=== PATIENT | female | born 2000 | race Hispanic/Latino ===

== ENCOUNTER 2021-07-27 14:13 | Outpatient (CLI) | payer OTHER, SELFPAY ==
[2021-07-27 14:40] LABS: Absolute Lymphocyte Count 2.74 X10^3/uL (0.83-4.51); Absolute Neutrophil Count 3.4 X10^3/uL (2.0-7.7); Basophil# 0.04 X10^3/uL; Basophil% 0.6 % (0-1); Eosinophil# 0.16 X10^3/uL; Eosinophils% 2.3 % (0-5); Hematocrit 39.5 % (37-47); Hemoglobin 13.4 g/dL (12.0-15.0); Lymphocyte # 2.74 X10^3/ul (0.83-4.51); Lymphocyte % 40.1 % (19-41); Mean Corp Hgb Conc 33.9 g/dL (32-36); Mean Corpuscular Hgb 30.4 pg (27.0-32.0); Mean Corpuscular Volume 89.6 fL (81-99); Mean Platelet Vol. 11.1 fl (6.2-12.0); Monocyte# 0.52 X10^3/uL; Monocyte% 7.6 % (0-10); NRBC Flagged by Analyzer 0 % (0-5); Neutrophil # 3.36 X10^3/uL (2.7-7.7); Neutrophil % 49.1 % (47-70); Platelet Count 230 K/mm3 (150-450); RBC Distribution Width SD 43.1 fl (35.1-43.9); Red Blood Count 4.41 M/mm3 (4.2-5.4); White Blood Count 6.8 K/mm3 (4.4-11.0)
[2021-07-27 15:14] LABS: Thyroid Stim Hormone (TSH) 0.62 uIU/mL (0.358-3.74)
[2021-07-27 15:33] LABS: HIV - WCH Non-Reactive (Nonreactive); Syphilis Antibodies Non-reactive; Vitamin D,25 Hydroxy 19.9 ng/mL
[2021-07-27 17:26] LABS: Chlamydia Trachomatis by PCR Negative (Negative); Neisserai gonorrhoeae by PCR Negative (Negative); Probe Check PASS; Sample Adequacy Control PASS; Specimen Processing Control PASS
[2021-07-29 12:44] LABS: HSV 2 IgG < 0.91 index (0.00-0.90)
== END 2021-07-27 23:59 | disposition home or self-care (01) ==
PROVIDERS: PCP Nurse Practitioner Primary Care; Referring Provider Nurse Practitioner Women's Health; Visit Provider Nurse Practitioner Women's Health
DX: Z11.3 Encounter for screening for infections with a predominantly sexual mode of transmission (principal)
CPT/HCPCS: 36415; 82306; 84443; 85025; 86695; 86696; 86703; 86780; 87491; 87591

== ENCOUNTER 2022-01-10 10:56 | Emergency (ER) | payer OTHER, SELFPAY ==
[2022-01-10 10:57] VITALS: BP 119/71; PULSE 57; RESP 16; TEMP 36.8; O2SAT 99; BMI 26.6
--- NOTE | 2022-01-10 11:55 | ED.VIS.FALL ---
HPI HPI - Fall History of Present Illness Chief Complaint: Fall Informant: patient Occured/Mechanism Occurred: Days (3 days ago) Fall down steps #: 15 Pain/Injury Location: Left knee, right jaw Quality of Pain: Burning Worsened by: Movement Relieved by: Nothing Associated Symptoms Associated Symptoms: Negative for Parasthesias, Weakness, Loss of function, Inability to ambulate, Loss of consciousness or Amnesia Narrative Narrative: Patient presents after a fall that occurred 3 days ago. Patient states she fell down approximately 15 steps. Patient hit her head but denies any loss of consciousness. Patient admits to pain in her jaw that is worse on the right. Patient also admits to pain in her left knee. Patient describes her pain as burning. Patient denies any paresthesias or weakness. Patient admits to some abrasions but denies any bleeding. Patient admits to a mild occipital headache. Patient denies any other injuries. [facility] Medical History Contusion of left great toe without damage to nail Home Medications melatonin 3 mg tablet 3 mg PO HS PRN 04/25/21 [History Last Taken Unknown] NuvaRing 0.12 mg-0.015 mg/24 hr vaginal (etonogestrel-ethinyl estradiol) 1 vag ring vaginal Q4W #3 ea 07/27/21 [Rx Last Taken Unknown] Allergy/AdvReac Type Severity Reaction Status Date / Time acetaminophen [From NyQuil] Allergy Intermediate Chest Verified 01/10/22 11:00 tightness dextromethorphan Allergy Intermediate Chest Verified 01/10/22 11:00 [From NyQuil] tightness doxylamine [From NyQuil] Allergy Intermediate Chest Verified 01/10/22 11:00 tightness pseudoephedrine [From NyQuil] Allergy Intermediate Chest Verified 01/10/22 11:00 tightness Family History (Updated 07/27/21 @ 13:51 by Sarai Villafana) Mother Breast cancer, Onset Age: 32 pre cervical cancer Father Hypertension Hyperlipidemia Sister Crohn's disease Surgical History History of cholecystectomy History of surgical removal of pilonidal cyst History of tonsillectomy and adenoidectomy Social History household members: significant other number of children: 0 current occupational status: employed current occupation: [employer] sexually active: Yes Smoking Status: Never smoker alcohol intake: current alcohol intake frequency: holidays/special occasions only substance use type: marijuana what type of physical activity do you participate in: none seatbelt use: always do you feel safe at home: Yes additional social history: boyfriend - [place] ROS ROS ED Constitutional Constitutional ED: Denies chills or fever(s) Eyes Eyes: Denies blurry vision or change in vision ENT ENT ED: Denies rhinorrhea or sore throat Cardiovascular Cardiovascular: Denies chest pain or palpitations Respiratory/Chest Respiratory/Chest: Denies cough or dyspnea Gastrointestinal Gastrointestinal: Denies nausea or vomiting Genitourinary Genitourinary ED: Denies dysuria or hematuria Musculoskeletal Musculoskeletal: Denies back pain or neck pain Integumentary Reports Abrasions; Denies abscess or rash Neurologic Neurologic: Reports headache(s); Denies weakness Allergic/Immunologic Allergic/Immunologic ED: Denies mouth swelling or urticaria EXAM Physical Exam Const Vital Signs: 01/10/22 10:57 01/10/22 11:11 Temperature 98.3 F Temperature Source Temporal Pulse Rate 57 L Respiratory Rate 16 Respiratory Effort Normal Non-Labored Respiratory Depth Normal Respiratory Pattern Normal Blood Pressure 119/71 Blood Pressure Mean 87 Pulse Ox 99 Oxygen Delivery Method Room Air Room Air Positive well nourished and well developed General Appearance ED: well developed and NAD HEENT Reports normocephalic HEENT Narrative: There is tenderness over the right temporomandibular joint area. There is no bony crepitance or step-off. There is no edema or ecchymosis. Patient is able to hold a tongue blade between her teeth against resistance. Neck full ROM and supple General: Negative for tenderness Resp normal respiratory effort and clear to auscultation bilaterally Cardio regular rate and regular rhythm GI non-tender Palpation: soft Extremity Extremity Narrative: There is tenderness, edema, and ecchymosis over the anterior aspect of the left knee. There is no bony crepitance or step-off. Range of motion was limited in flexion of the left knee secondary to pain. Sensation was intact to light touch bilaterally in the lower extremities. Strength is 5/5 bilaterally in the lower extremities. Neuro oriented x3, CN's II-XII intact bilaterally, moves all extremities, no focal motor deficits and no sensory deficits noted [place] Coma Scale: document GCS findings Spontaneous Obeys Commands Oriented 15 Sensorium / Orientation: alert Motor Exam: strength 5/5 throughout Psych mental status grossly normal and thought process normal Skin Skin Narrative: There are superficial abrasions over the medial aspect of the right elbow and anterior aspect of the left knee. There is no active bleeding. Trauma: abrasion MDM MDM MDM Narrative Medical decision making narrative: CT scan of the brain was obtained. There is no acute intracranial abnormality. This was interpreted by the radiologist and reviewed by myself. X-rays of the left knee were obtained. There are 4 views. On my interpretation, there is no acute fracture. There is no dislocation. There is some mild soft tissue swelling. Radiologist also interpreted the x-rays and agrees. Patient was advised of her findings. Patient was instructed to ice and elevate the left knee. Patient was instructed to take Tylenol or ibuprofen as needed for pain. Patient was given head injury instructions. Patient was instructed to drink plenty of fluids. Patient was instructed to limit her screen time with her phone and TV. Patient was instructed to follow-up with her primary care physician in 5 to 7 days. Patient understood and was agreeable with the plan. All questions were answered. Radiography Diagnostic Testing: Clinical Impression(s) from Imaging Studies Brain CT 01/10/22 12:02 IMPRESSION: Normal unenhanced CT scan of the brain. Electronically Signed: Ilia Epps MD at 12:33 EDT , Knee X-Ray 01/10/22 12:25 IMPRESSION: Normal x-ray examination of the knee. Electronically Signed: Ilia Epps MD at 12:37 EDT , Discharge Plan Triage Chief Complaint: Fall ED Provider: Jeff Birmingham Dx/Rx/DC Orders Clinical Impression: Concussion, Contusion of left knee, initial encounter, Sprain of right temporomandibular joint Instructions: ED Concussion, ED Contusion, Lower Extremity Prescriptions: No Action melatonin 3 mg tablet 3 mg PO HS PRN etonogestrel-ethinyl estradiol [NuvaRing] 0.12-0.015 mg/24 hr ring 1 vag ring VAGINAL Q4W Qty: 3 4RF Primary Care Provider: Wendy Zhu NP Referrals: Wendy Zhu NP, MAT[facility]IST-[facility] [Primary Care Provider] - 5-7 Days Disposition Disposition: Home, Self Care
--- NOTE | 2022-01-10 12:02 | CT_ITS ---
STUDY: CT BRAIN WITHOUT CONTRAST REASON FOR EXAM: Female, 21 years old. Head injury due to a fall. RADIATION DOSAGE (If Supplied By Facility): CTDIvol = ( 44.99 ) mGy, DLP = ( 697.68 ) mGycm TECHNIQUE: Transaxial CT imaging of the brain was performed without administration of intravenous contrast material. Individualized dose optimization techniques were used for this CT. COMPARISON: No relevant priors. FINDINGS: Normal soft tissue structures. Normal calvarium. Normal size ventricles and extra-axial spaces for the patient''s age. Normal white matter tracts of the cerebral hemispheres. Normal basal ganglia and thalami. Normal brainstem. Normal cerebellum. There is no intracranial hemorrhage. There are no findings of an acute ischemic infarction. Normal visualized paranasal sinuses. CT/Brain/Head without Contrast IMPRESSION: Normal unenhanced CT scan of the brain. Electronically Signed: Ilia Epps MD at 12:33 EDT ,
--- NOTE | 2022-01-10 12:25 | RAD_ITS ---
STUDY: X-RAY - LEFT KNEE REASON FOR EXAM: Female, 21 years old. Injury/Pain TECHNIQUE: 4 view(s) of the knee. COMPARISON: None. FINDINGS: Normal visualized distal femur. Normal visualized proximal tibia and fibula. Normal proximal tibiofibular articulation. Normal medial femorotibial compartment. Normal lateral femorotibial compartment. Normal patellofemoral articulation. The soft tissue structures are unremarkable. RAD/Knee 4 or More Views IMPRESSION: Normal x-ray examination of the knee. Electronically Signed: Ilia Epps MD at 12:37 EDT ,
== END 2022-01-10 13:09 | disposition home or self-care (01) ==
PROVIDERS: Emergency Provider Emergency Medicine; PCP Nurse Practitioner Primary Care; Visit Provider Emergency Medicine
DX: S06.0X0A Concussion without loss of consciousness, initial encounter (principal); S80.02XA Contusion of left knee, initial encounter; S03.41XA Sprain of jaw, right side, initial encounter; W10.9XXA Fall (on) (from) unspecified stairs and steps, initial encounter
CPT/HCPCS: 70450; 73564; 99282

== ENCOUNTER 2022-05-20 09:37 | Emergency (ER) | payer OTHER, SELFPAY ==
[2022-05-20] VITALS (9 sets, daily range): BP systolic 112–133; BP diastolic 70–94; PULSE 77–97; RESP 13–17; TEMP 36.9; O2SAT 94–99; BMI 25.3
--- NOTE | 2022-05-20 09:56 | CT_ITS ---
STUDY: CT BRAIN WITHOUT CONTRAST REASON FOR EXAM: Female, 21 years old. PT WITH ONGOING BACK PAIN HAD SEIZURE YESTERDAY FOR 1 MIN, SEEN AT [facility], THIS AM HAD ANOTHER SEIZURE LASTING APPROX 2 MIN. RADIATION DOSAGE (If Supplied By Facility): CTDIvol = ( 25.49 ) mGy, DLP = ( 1396.28 ) mGycm TECHNIQUE: Transaxial CT imaging of the brain was performed without administration of intravenous contrast material. Individualized dose optimization techniques were used for this CT. COMPARISON: Head CT dated January 10, 2022 FINDINGS: Normal soft tissue structures. Normal calvarium. No visualized dense artery sign or sulcal effacement or parenchymal edema. No midline shift or hydrocephalus is present. Normal size ventricles and extra-axial spaces for the patient''s age. Normal white matter tracts of the cerebral hemispheres. Normal basal ganglia and thalami. Normal brainstem. Normal cerebellum. There is no intracranial hemorrhage. There are no findings of an acute ischemic infarction. Normal visualized paranasal sinuses. IMPRESSION: Normal unenhanced CT scan of the brain. STUDY: CTA HEAD AND NECK WITH CONTRAST REASON FOR EXAM: Female, 21 years old. dissection PT WITH ONGOING BACK PAIN HAD SEIZURE YESTERDAY FOR 1 MIN, SEEN AT [facility], THIS AM HAD ANOTHER SEIZURE LASTING APPROX 2 MIN. RADIATION DOSAGE (If Supplied By Facility): CTDIvol = ( 25.49 ) mGy, DLP = ( 1396.28 ) mGycm TECHNIQUE: CT angiography was performed with a multi-detector CT scanner. Data acquisition was obtained from the skull base through the vertex following intravenous administration of IV 100mL [id number]-[id number]. MIP images were reconstructed from the axial data set. Post-processing of the angiographic images was performed, with multiplanar reformation and 3D reconstruction. Individualized dose optimization techniques were used for this CT. COMPARISON: Head CT dated January 10, 2022 FINDINGS: Normal bilateral petrous carotid arteries. Normal right cavernous carotid artery with a normal supraclinoid bifurcation. Normal left cavernous carotid artery with a normal supraclinoid bifurcation. Normal right A1 segments of the anterior cerebral artery. Normal left A1 segments of the anterior cerebral artery. Normal intact anterior communicating artery (ACOM). Normal bilateral A2 segments of the anterior cerebral arteries. Normal right M1 and M2 segments of the middle cerebral arteries, with a normal M1 bifurcation. Normal left M1 and M2 segments of the middle cerebral arteries, with a normal M1 bifurcation. Normal right posterior communicating artery (PCOM). Normal left posterior communicating artery (PCOM). Normal bilateral vertebral arteries. Normal basilar artery with a normal basilar bifurcation. The visualized bilateral superior cerebellar (SCA) arteries are normal. Normal bilateral P1, P2 and visualized P3 segments of the posterior cerebral arteries. There is no demonstrated aneurysm of the [place] of [place]. There is no demonstrated abnormality of the visualized brain. AORTIC ARCH: Normal visualized aortic arch. Normal origins of the brachiocephalic, left common carotid, and left subclavian arteries. RIGHT CAROTID ARTERIES: Normal right common carotid artery (CCA). Normal right common carotid bulb. Normal origin of the right internal carotid (ICA) artery without a hemodynamically significant stenosis. Normal visualized cervical portion of the right internal carotid artery. Normal origin of the right external carotid artery (ECA). LEFT CAROTID ARTERIES: Normal left common carotid artery (CCA). Normal left common carotid bulb. Normal origin of the left internal carotid (ICA) artery without a hemodynamically significant stenosis. Normal visualized cervical portion of the left internal carotid artery. Normal origin of the left external carotid artery (ECA). VERTEBRAL ARTERIES: Normal bilateral vertebral arteries. There is no intraluminal thrombus or dissection or intimal flap of the bilateral vertebral arteries along the entire course to the insertion on the subclavian arteries. No narrowing or fibromuscular changes are present. CT/CTA Head AND Neck W/ Contrast IMPRESSION: 1. Normal [place] without a demonstrated aneurysm or hemodynamically significant stenosis. 2. Normal bilateral cervical carotid and vertebral arteries. 3. Normal bilateral vertebral arteries. There is no intraluminal thrombus or dissection or intimal flap of the bilateral vertebral arteries along the entire course to the insertion on the subclavian arteries. No narrowing or fibromuscular changes are present. Electronically Signed: Andrade Calderon MD at 12:01 EST ,
--- NOTE | 2022-05-20 09:58 | EX.ED.DYSGE1 ---
HPI History of Present Illness Chief Complaint: Seizure Narrative Narrative: Patient presents after a seizure today. She does not have a history of seizures she had a seizure yesterday and was seen at an outside emergency department. Apparently CT of the head and blood work were unremarkable. She is denying withdrawing from anything, no new medications. No head injury. She was brought in by parents [facility] Medical History Anxiety Contusion of left great toe without damage to nail Depression Dysuria Epigastric pain GERD (gastroesophageal reflux disease) Pelvic pain SOB (shortness of breath) Home Medications NuvaRing 0.12 mg-0.015 mg/24 hr vaginal (etonogestrel-ethinyl estradiol) 1 vag ring vaginal Q4W #3 ea 07/27/21 [Rx Last Taken Unknown] omeprazole 20 mg capsule,delayed release 20 mg PO DAILY 05/16/22 [History Last Taken Unknown] tizanidine 2 mg tablet 2 mg PO Q8H 05/20/22 [History Last Taken Unknown] Allergy/AdvReac Type Severity Reaction Status Date / Time acetaminophen [From NyQuil] Allergy Intermediate Chest Verified 05/20/22 09:38 tightness dextromethorphan Allergy Intermediate Chest Verified 05/20/22 09:38 [From NyQuil] tightness doxylamine [From NyQuil] Allergy Intermediate Chest Verified 05/20/22 09:38 tightness phenylephrine Allergy Intermediate Other Verified 05/20/22 09:38 pseudoephedrine [From NyQuil] Allergy Intermediate Chest Verified 05/20/22 09:38 tightness Family History Mother Breast cancer, Onset Age: 32 pre cervical cancer Father Hypertension Hyperlipidemia Sister Crohn's disease Surgical History History of cholecystectomy History of surgical removal of pilonidal cyst History of tonsillectomy and adenoidectomy Social History household members: significant other number of children: 0 current occupational status: employed current occupation: [employer] sexually active: Yes Smoking Status: Current some day smoker tobacco type: e-cigarettes alcohol intake: current alcohol intake frequency: holidays/special occasions only substance use type: marijuana what type of physical activity do you participate in: none seatbelt use: always do you feel safe at home: Yes additional social history: boyfriend - [place] ROS ED ROS Narrative Past medical history: Reviewed Medications: Reviewed Social history: Noncontributory Review of systems: All systems negative except as indicated General: No fever Eyes: No visual changes ENT: No upper airway congestion, normal voice. No tongue abrasion Neck: No neck pain Cardiovascular: No chest pain Respiratory: No shortness of breath or cough Gastrointestinal: No abdominal pain, nausea vomiting or diarrhea Genitourinary: No dysuria Musculoskeletal: Denies myalgias no difficulty with ambulation Skin: No rash Neurological: As in HPI, right now she is amnestic to the event but she is lucid and coherent and no longer postictal. Psych: No recent behavioral changes Hematologic: No easy bleeding or easy bruising EXAM Physical Exam Narrative Exam Narrative: Physical exam General: Well nourished, Well developed, No Acute Distress Head: Normocephalic, Atraumatic Eyes: Conjunctiva not pale ENT: Moist mucous membranes. No tongue abrasion Neck: Supple, Nontender, No lymphadenopathy Cardiovascular: Regular rate, Regular rhythm Respiratory: No distress, CTA bilaterally Abdomen: Soft, Nontender, Nondistended Back: Nontender, Normal Inspection. Negative for: CVA tenderness Extremities: Nontender, No edema. Moves all extremities without any signs of trauma. Skin: Normal color, No rash Neurological: Alert, she is now lucid and coherent normal Strength, Normal Sensation Psychological: Normal affect Const Vital Signs: 05/20/22 09:39 05/20/22 12:14 05/20/22 13:03 Temperature 98.5 F Temperature Source Oral Pulse Rate 88 77 91 Respiratory Rate 17 17 16 Blood Pressure 133/90 H 120/86 H 124/94 H Blood Pressure Mean 104 97 104 Pulse Ox 99 98 97 Oxygen Delivery Method Room Air Room Air Room Air MDM MDM MDM Narrative Medical decision making narrative: A. Problems addressed Patient had an obvious seizure on the video screen I am seeing, the lactate was normal however the patient did come 2 to 3 hours after the seizure. I also addressed the patient's nausea, she does not feel well therefore I believe blood work was warranted. B. Amount and/or complexity of the data (2 out of 3) 1. I reviewed records from [place] emergency department, including CT and blood work as well as prior physician documentation. Blood work was ordered and interpreted by me I discussed the patient with both parents who are in the room, they saw her sees today, I saw a video from her boyfriend videoing her seizing yesterday. 2. Independent interpretation of test Telemetry: She is on the monitor in the room with heart rate in the 80s and low 90s without ectopy 3. I discussed the patient with [facility] external telemetry neurology, I discussed the plan. C. Risk of complications and/or morbidity Because the patient's recent chiropractic manipulation of the neck and neurological symptoms I did do a CT angiogram of the head and neck which were normal. Otherwise her blood work is normal she appears well however this is her second seizure and she is not on medication I believe she would likely need medications and possibly get an outpatient work-up by neurology. I called the outpatient neurology telemedicine for this. With suspending it with her note oncoming ED physician Lab Data Labs: Laboratory Results - last 24 hr 05/20/22 05/20/22 05/20/22 09:45 09:45 10:05 WBC 7.8 RBC 4.54 Hgb 13.4 Hct 40.3 MCV 88.8 MCH 29.5 MCHC 33.3 RDW Std Deviation 40.7 RDW Coeff of Elle 12.5 Plt Count 208 MPV 11.4 Immature Gran % (Auto) 0.300 Neut % (Auto) 81.4 H Lymph % (Auto) 13.0 L [place] % (Auto) 5.0 Eos % (Auto) 0.0 Baso % (Auto) 0.3 Absolute Neuts (auto) 6.3 Absolute Lymphs (auto) 1.01 Nucleated RBC % 0 Sodium 140 Potassium 3.6 Chloride 110 H Carbon Dioxide 25.0 Anion Gap 5 BUN 6 L Creatinine 0.86 Estim Creat Clear Calc 93.11 Est GFR (MDRD) Af Amer 106 Est GFR (MDRD) Non-Af 87 BUN/Creatinine Ratio 6.9 L Glucose 118 H Lactic Acid 1.3 Calcium 9.4 Total Bilirubin 0.50 AST 46 H ALT 27 Alkaline Phosphatase 65 Total Protein 8.5 H Albumin 4.4 Globulin 4.1 Albumin/Globulin Ratio 1.1 Radiography Diagnostic Testing: Clinical Impression(s) from Imaging Studies Head/Neck CTA 05/20/22 09:56 IMPRESSION: 1. Normal [place] without a demonstrated aneurysm or hemodynamically significant stenosis. 2. Normal bilateral cervical carotid and vertebral arteries. 3. Normal bilateral vertebral arteries. There is no intraluminal thrombus or dissection or intimal flap of the bilateral vertebral arteries along the entire course to the insertion on the subclavian arteries. No narrowing or fibromuscular changes are present. Electronically Signed: Andrade Calderon MD at 12:01 EST Reading Location ID and State: [facility] / [place] , Service support , Discharge Plan Triage Chief Complaint: Seizure ED Provider: Octavio Pappas Dx/Rx/DC Orders Clinical Impression: Seizure, Acute confusion, Weakness Prescriptions: No Action etonogestrel-ethinyl estradiol [NuvaRing] 0.12-0.015 mg/24 hr ring 1 vag ring VAGINAL Q4W Qty: 3 4RF omeprazole 20 mg capsule,delayed release(DR/EC) 20 mg PO DAILY tizanidine 2 mg tablet 2 mg PO Q8H Label Comments: take 1 tablet by mouth every 8 hours Primary Care Provider: Wendy Zhu NP Referrals: Wendy Zhu NP, MANAGER [facility]ELOPMENT[facility] [Primary Care Provider] -
[2022-05-20 10:18] LABS: Absolute Lymphocyte Count 1.01 X10^3/uL (0.83-4.51); Absolute Neutrophil Count 6.3 X10^3/uL (2.0-7.7); Basophil# 0.02 X10^3/uL; Basophil% 0.3 % (0-1); Hematocrit 40.3 % (37-47); Hemoglobin 13.4 g/dL (12.0-15.0); Lymphocyte # 1.01 X10^3/ul (0.83-4.51); Mean Corp Hgb Conc 33.3 g/dL (32-36); Mean Corpuscular Hgb 29.5 pg (27.0-32.0); Mean Corpuscular Volume 88.8 fL (81-99); Mean Platelet Vol. 11.4 fl (6.2-12.0); Monocyte# 0.39 X10^3/uL; NRBC Flagged by Analyzer 0 % (0-5); Neutrophil # 6.33 X10^3/uL (2.7-7.7); Neutrophil % 81.4 % (47-70); Platelet Count 208 K/mm3 (150-450); RBC Distribution Width CV 12.5 % (11.6-14.6); RBC Distribution Width SD 40.7 fl (35.1-43.9); Red Blood Count 4.54 M/mm3 (4.2-5.4); White Blood Count 7.8 K/mm3 (4.4-11.0)
[2022-05-20 10:26] LABS: ALB/GLOB Ratio 1.1 RATIO (0.9-2.4); AST(SGOT) 46 U/L (15-37); Alanine Aminotransfer ALT/SGPT 27 U/L (13-56); Albumin, Serum 4.4 g/dL (3.2-5.0); Alkaline Phosphatase 65 U/L (45-117); Anion Gap 5 (5-15); BUN 6 mg/dL (7-18); BUN/Creat Ratio 6.9 RATIO (10-20); Calcium,Total 9.4 mg/dL (8.5-10.1); Chloride 110 mmol/L (98-107); Creatinine, Serum 0.86 mg/dL (0.55-1.02); EST Glomerular Filtration Rate 87 mL/min (>60); Est Glom Filt Rate - Afr Amer 106 mL/min (>60); Estimated Creatinine Clearance 93.11 ml/min; Globulin 4.1 g/dL (2.2-4.2); Glucose 118 mg/dL (74-106); Potassium 3.6 mmol/L (3.5-5.1); Protein, Total 8.5 g/dL (6.4-8.2); Sodium Level 140 mmol/L (136-145)
[2022-05-20 10:34] LABS: Lactic Acid 1.3 mmol/L (0.4-1.9)
[2022-05-20] MEDS: Ondansetron 4 MG/2 ML Vial IV ×2 (10:49→12:57)
[2022-05-20] MEDS: LORazepam 2 MG/ML Syringe 0.5 MG IV ×2 (12:57→15:12)
--- NOTE | 2022-05-20 13:03 | TELEMED_ITS ---
[facility] has confirmed receipt of a request for visit. This document confirms receipt of the order initiating the consult. To find the results of the consultation, please view the patient's reports for the scanned Telemed Consult.
[2022-05-20 15:04] LABS: Bacteria 0 SEEN /hpf (None Seen); Color, Urine Yellow (Yellow); Glucose, Dipstick Normal (Normal); Leukocyte Esterase-Dipstick Negative /ul (Negative); Mucous, Urine 0 SEEN /hpf (<or=2+); Nitrite-Dipstick Negative (Negative); Occult Blood-Urine 10 /ul (Negative); Protein-Dipstick 30 mg/dl (Negative); Red Blood Cells-Urine 0 SEEN /hpf (0-5); Urine Bilirubin Dipstick Negative (Negative); Urine Clarity Clear (Clear); Urine Urobilinogen Normal (Normal); White Blood Cells 0 SEEN /hpf (0-5)
[2022-05-20 15:07] LABS: Ketone-Dipstick 150 mg/dl (Negative)
[2022-05-20 15:09] LABS: Squamous Epithelial Cells - UA 0-5 SEEN /hpf (5-10)
[2022-05-20 15:10] LABS: Internal QC Validated? YES +Cl - CLEAR BKGD; Pregnancy, Urine Negative Negative
[2022-05-20 15:43] LABS: Amphetamine Urine VISTA NEGATIVE (<1000 ng/mL); Barbiturate Urine VISTA NEGATIVE (< 200 ng/mL); Benzodiazepine Urine VISTA NEGATIVE (< 200 ng/mL); Cocaine Urine VISTA NEGATIVE (< 300 ng/mL); Ecstacy Urine VISTA NEGATIVE (< 500 ng/mL); Methadone Urine VISTA NEGATIVE (< 300 ng/mL); PCP Urine VISTA NEGATIVE (< 25 ng/mL); THC Urine VISTA POSITIVE (< 50 ng/mL); Vista UDS pH Range 6
--- NOTE | 2022-05-20 19:27 | ED.RN ---
Per [facility], we so not need to give the report, when I called to give report nurse to nurse for er to er.
[2022-05-20] MEDS: hydrOXYzine PAM 25 MG Capsule PO (20:35)
== END 2022-05-20 22:13 | disposition short-term general hospital (02) ==
PROVIDERS: Emergency Provider Emergency Medicine; PCP Nurse Practitioner Primary Care; Visit Provider Emergency Medicine
DX: R56.9 Unspecified convulsions (principal); R41.0 Disorientation, unspecified; R53.1 Weakness; F17.290 Nicotine dependence, other tobacco product, uncomplicated
CPT/HCPCS: 70496; 70498; 80053; 80307; 81001; 81025; 83605; 85025; 96374; 96375; 96376; 99284; Q9967; A4216; J2405

== ENCOUNTER 2023-01-31 16:30 | Outpatient (RCR) | payer OTHER, MEDICAID, SELFPAY ==
--- NOTE | 2022-08-22 16:36 | HP.OTEVAL_ITS ---
Patient's Visit Information JAMES GAVIN is a 22 year old F, referred to Occupational Therapy by ESAU GREEN, with a diagnosis of Anti-NMDA Receptor Encephalitis. 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 placed in hospital 2022- mom states she started having seizures- mon initially took Pt to [facility] and they released her. Mom than took her to [facility] and was transported to [facility]. pt was in ICU for 3 months and rehab 3 weeks. Pt just released on August 10, 2022. pt continues to have hearing loss and has not spoken since trachea was removed. pt will see ENT in [place]. pt lives with mom and brother. Mom states she is around to assist with ADLs and IADLs as needed. 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 pt requires constant supervision 24hrs- pt non verbal and [place] since dx. pt with Mom and family supportive. - ADLs Comments: pt with mom and little brother - mom speaks for James-. Living with boyfriend for last 3 years- boyfriend is home with Pt at night and mom is home with her during the day- mom arrives at home prior to Pts boyfriend leaving for work-. per mom pt is IND with bathing and dressing- grooming at IND. level. laundry and cleaning at IND. levels. pt has dog ([place]). communication is by writing - ROM ROM Comments: pt demo full ROM - Strength Home Health Caregiver: right 40# left 45# Lateral Pinch: right 10# left 6# Tripod Pinch: right 10# left 10# Strength Comments: pt difficulty with following resistive testing - Cognitive Skills Follows Directions: No - needs visual and h/h for some testing request- will follow directions slow Oriented to (Check all that apply): Person Short Term Memory Impaired: - unsure Cognitive Comments: pt unable to verbalize/ produce speech since trachea was removed - hearing also affecting. per notes from [facility] - pt is inconsistent in wi th problem solving skills. pt non-verbal. [place]. communication is by writing. per [facility] notes pt is in need of Constant supervision (04/12) - Attention Attention: Normal - Rehabilitation General Assessment: per parent report pt is ASHLI IND in her home no assistance needed for ADLs or home mtg. tasks. Due cognitive and speech deficits services will be referred to Speech therapy for continue with cognitive and vocal support-. if need of UB strengthening is warranted pt will return. - Anticipated Interventions Other Interventions: defer services to speech therapy - Visit Plan General Plan: At this time as pt is at ASHLI levels for ADLs and home mtg. due to dx is required 04/12 supervision TEXT: Thank you for the opportunity to evaluate your patient. For Medicare and Medicare HMO plans, please review the plan of care and approve it. It will need to be FAXED BACK to us at [phone] for Medicare purposes. Please let me know if there are questions or concerns regarding this plan of care. Physician Signature: Date:
--- NOTE | 2022-08-23 18:50 | HP.SP.EV_ITS ---
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 RX HERE Medical Diagnosis: Severe cognitive deficits. Date of Onset of Diagnosis: 05/21/22 Previous speech therapy: Yes Results: In [facility] with the focus on dysphagia treatment and vocalizing. 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 placed in hospital 2022- mom states she started having seizures- mon initially took Pt to [place] and they released her. Mom than took her to [facility] and was transported to [facility]. pt was in ICU for 3 months and rehab 3 weeks. Pt just released on August 10, 2022. pt continues to have hearing loss and has an audiology evaluation on August 29. pt lives boyfriend and mother has been taking her during the day so she has 24 hour supervision. 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 pt requires constant supervision 24hrs- pt non verbal and [place] since dx. pt with Mom and family supportive. Medications related to this diagnosis: Mother to bring list next visit. Patient is on anti seizure medication. Smoking Status: Light Smoker (<10/day) - Diagnosis Diagnosis: Severe cognitive- linguistic deficits, possible Apraxia - Pain Is pain an issue with your current prescribed condition?: No - Personal Preferred language: Belarusian History - History Date of Eval: 08/22/22 Medical Diagnosis (from RX): Severe cognitive deficits. Date of Onset of Diagnosis: 05/21/22 Previous speech therapy: Yes Results: In [facility] with the focus on dysphagia treatment and vocalizing. 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 placed in hospital 2022- mom states she started having seizures- mon initially took Pt to [place] and they released her. Mom than took her to [facility] and was transported to [facility]. pt was in ICU for 3 months and rehab 3 weeks. Pt just released on March 30th, 2023. pt continues to have hearing loss and has an audiology evaluation on August 29. pt lives boyfriend and mother has been taking her during the day so she has 24 hour supervision. pt was employed at [employer] as [employer] working fulltime. pt requires constant supervision 24hrs- pt non verbal and [place] since dx. pt with Mom and family supportive. Medications related to this diagnosis: Mother to bring list next visit. Patient is on anti seizure medication. Smoking Status: Light Smoker (<10/day) Hx Tobacco Use: No - Pain Is pain an issue with your current prescribed condition?: No Patient Allergies - Allergies Allergies acetaminophen [From NyQuil] Allergy (Intermediate, Verified 05/20/22 09:38) Chest tightness dextromethorphan [From NyQuil] Allergy (Intermediate, Verified 05/20/22 09:38) Chest tightness doxylamine [From NyQuil] Allergy (Intermediate, Verified 05/20/22 09:38) Chest tightness phenylephrine Allergy (Intermediate, Verified 05/20/22 09:38) Other pseudoephedrine [From NyQuil] Allergy (Intermediate, Verified 05/20/22 09:38) Chest tightness Subjective Dysphagia - Comments History of dysphagia -: Patient had a PEG tube but it has been removed. Dysphagia is no longer an area of deficit. Objective Cog/Ling/Com - Test Administered Spitgkaai-Bcogrekojs-Cuaxtmkwlangs Assessment Administered: Yes Qicfktxky-Ltuelbscgt-Amuktxnfaodiu Assessment: Cognitive ? Linguistic skills were evaluated using patient/family interview, skilled observation and informal evaluation through tasks completed by the patient. - Orientation Orientation: Person, Birthdate - Answer Yes/No Questions Simple: Mild Complex: Severe - Follows Commands 1 Step: WNL - Comments Comments: Questions and commands were provided in written form. Patient appeared to have slow reading/processing on all things she read. If it was complex or longer she looked at her mom and shrugged her shoulders. - Repetition Words: Severe Sentences: Severe - Conversational Tasks Conversational Tasks: Severe Comments: Patient is unable to participate in conversation at this time. She needed maximal cues to whisper words - Jaci, 1-10 and imitated her dog's name ( chico) with significant effort and two attempts. - Reading Comprehension Words: WFL Phrases: WFL - Oral Reading Comments: Unable to complete due to lack of voicing. - Writing Functional writing correctly: Address Comments: She was able to write yes/no and [address] was added as stretete. [place] was written as [place]. She was aware that it was not spelled correctly but unable to self correct. She was able to copy the word. CLQT - CLQT CLQT Administered: No CLQT: Testing did not occur: See additional information below. Date: 08/22/22 - Clock Drawing Severity Rating Clock Drawing Severity Rating: Severe - CLQT Comments Comments The patient's clock drawing had 3 hands, 1-12 twice ( 1-12 on right half and 1- 12 on left half. Two numbers were written backwards. No arrows to point to time and no differentiation of hands for telling time. Objective Dysarthira/Motor - Volume Volume: Severe - Sounds Sounds in Error: Unable to determine as patient is non verbal and rarely attempted to produce/mouth words. - Observation Observation of Apraxia of Speech: Yes Oral Groping for Placement: Yes - Comments Comments -: Jcai attempted to count 1-10 with whispered/mouthed words. She exhibited obvious oral groping and noted production errors on 6 and 8. No voicing noted. Possible severe apraxia of speech as she had a difficult time in imitation of words as well. Subjective Voice - Intubation Was the Client intubated: Yes - Other Product Usage Do you use recreational drugs (if yes, list type/amt/frequency): Yes - Marijuana Subjective Clinical Impression - Adult Clinical Impression Aphonia: lacking voice; no true vibratory voicing: Present Plan - Plan Plan: Speech therapy is warranted for severe cognitive linguistic deficits and voice deficits. - Recommendations Treatment Warranted: Yes Treatment Warranted: Receptive/ Expressive Language, Voice - Progress Prognosis: Good - Frequency Frequency: 2x /Week Duration: 3 Months Visits in this POC: 24 - Goals that are Established Determination:: Goals will be added/modified as deemed necessary and appropriate. Therapy will be discontinued when results of re-evaluation indicate therapy is no longer needed or lack of progress has been documented. - Goal #1-5 Goal #1: Jaci will phonate 5x per session on single word utterances given cues as needed. Goal #2: Jaci will use multimodal communication to express wants/needs/ideas given cues as needed for 75% of opportunities. Goal #3: Jaci will follow 1-2 step directions with 80% accuracy on 2/3 consecutive sessions. Education - Patient has Indicated that the Following Identified Educational Needs: Cognitively Impaired - Patient Instruction Patient Education: Diagnosis, Treatment Plan Person Taught: Patient, Family Teaching Method: Discussion Response to teaching: Return demonstration
--- NOTE | 2023-05-01 14:57 | HP.SP.DC_ITS ---
ST Discharge Summary Discharged: Discharge: Jaci Reeves is discharged from [facility] as of May 01, 2023. She was evaluated on 08/23/22 with a diagnosis of anti MNDA receptor encephalopathy that she was hospitalized on May 20, 2022. She made excellent progress and initially her goals were to phonate 5x per session, multimodal communication to express wants/needs/ideas given cues and follow 1-2 step directions. She progressed through these goals and continued to goals for automatic speech tasks and then produce 3+ syllable words then to voice goals. She can complete all cognitive tasks as well as communicate verbally well. Occasionally, she has difficulty with longer words but if she reduces her rate, she is able to produce them. Her voice remains hoarse, and this is the only lasting effect of her illness. She has returned to work in Fall 2022. She was instructed to contact therapist if she had deficits with returning to work and has not contacted this therapist. Please see daily notes for complete details. Thank you for allowing me to participate in the care of this patient.
== END 2023-01-31 19:00 | disposition home or self-care (01) ==
LOC: SP 16:30
PROVIDERS: PCP Nurse Practitioner Primary Care
DX: G04.81 Other encephalitis and encephalomyelitis (principal)
CPT/HCPCS: 92507; 92523; 97166